=== PATIENT | male | born 1990 | race Caucasian/White ===

== ENCOUNTER 2020-05-14 15:23 | Emergency (ER) | payer BC, SELFPAY ==
--- NOTE | ~2020-05-14 | CT_ITS ---
EXAMINATION: CT brain wo con INDICATION: Right-sided facial weakness COMPARISON: None TECHNIQUE: Standard unenhanced head CT. The dose-length product (DLP) was 681.00 mGy-cm. The mA was a djusted according to patient size. Iterative reconstruction technique was employed. FINDINGS: Motion artifact limits evaluation of the skull base. There is no intracranial hemorrhage, a cute infarction, or abnormal mass lesion. The ventricles are normal. There is no abnormal mass effect or midline shift. The zhu-white matter differentiation is normal. The basal cisterns are patent. Th e orbits are normal. There is mild mucosal thickening of the paranasal sinuses. IMPRESSION: 1. No acute intracranial abnormality. Reviewed, dictated and finalized at location A. ENTERS SUPERVISOR
[2020-05-14 15:27] VITALS: BP 153/100; PULSE 89; RESP 20; TEMP 36.2; O2SAT 100
--- NOTE | 2020-05-14 17:09 | ED.GENADULT ---
HPI - General Adult General Chief complaint: Neuro Symptoms/Deficit Stated complaint: numbness right side of face Time Seen by Provider: 05/14/20 15:37 Source: patient and family Mode of arrival: ambulatory Limitations: no limitations History of Present Illness HPI narrative: Patient is a 30-year-old male who presents with right-sided facial numbness and motor weakness patient notes it started with numbness tingling of the tongue and has progressed to difficulty with smiling and then closing the eye as well as moving the right side of the face to include the forehead and brow patient denies similar occurrence in the past or any injury or trauma Also notes frontal and posterior headache right sided Related Data Home Medications Medication Instructions Recorded Confirmed dextroamphetamine-amphetamine 05/14/20 pantoprazole PO 05/14/20 paroxetine HCl mg PO 05/14/20 Allergies Allergy/AdvReac Type Severity Reaction Status Date / Time shellfish derived Allergy Unknown Swelling Verified 05/14/20 15:39 of Lip/Tongue/Throat Review of Systems Review of Systems: All systems reviewed & are unremarkable except as noted in HPI and below PMFSH Family History Family History (Updated 10/06/15 @ 23:19 by DOCTOR UNKNOWN) Father Family history of diabetes mellitus in first degree relative Social History Social History Smoking status: Never smoker Alcohol intake: current Exam Narrative: Exam Narrative: GENERAL: Well-appearing, well-nourished, and in no acute distress. HEAD: Normocephalic, atraumatic. EYES: PERRLA and EOMI. ENT: Nares clear, no rhinorrhea or epistaxis. Mucous membranes moist. Oropharynx without tonsillar hypertrophy exudate or other lesions. Right TM pearly zhu nonbulging. Left TM slightly erythematous no blistering or other lesions NECK: Supple. No adenopathy or masses. CHEST: Clear to auscultation. No respiratory distress. No wheezes rales or rhonchi HEART: Regular rate and rhythm. No murmur heard. EXTREMITIES: Normal range of motion. No edema. SKIN: Warm, dry, no rash. NEURO: No focal deficits aside from cranial nerves VII deficit right-sided. Alert and oriented x3. Normal speech and gait. Remainder of neurologic exam normal no deficits to include cranial nerves II through XII PSYCH: Normal mood and affect. Course Course Emergency Course: Patient evaluated for his symptoms will be discharged home provided primary care follow-up likely experiencing Valentino's palsy given the right sided facial deficits 3-day duration with no sparing of the forehead on the right side patient otherwise has no other findings concerning for stroke will be discharged with primary care follow-up managed as a Valentino's palsy provided with reasons to return Vital Signs Vital signs: Vital Signs Temperature 97.2 F L 05/14/20 15:27 Pulse Rate 89 05/14/20 15:27 Respiratory Rate 20 05/14/20 15:27 Blood Pressure 153/100 H 05/14/20 15:27 Pulse Oximetry 100 05/14/20 15:27 Temperature 97.2 F L 05/14/20 15:27 Pulse Rate 89 05/14/20 15:27 Respiratory Rate 20 05/14/20 15:27 Blood Pressure 153/100 H 05/14/20 15:27 Pulse Oximetry 100 05/14/20 15:27 Medical Decision Making MDM Narrative Medical decision making narrative: Medical decision making explained in the course likely Valentino's palsy. Patients headache was not sudden or maximal in onset. There are no other focal neurological deficits on exam. Subarachnoid hemorrhage is felt to be unlikey at this time. There is no history of fever, and neck is supple without meningismus, making meningitis unlikely. No traumatic history or signs of trauma on exam. No risk factors for CVA, risk factors reviewed. Patients Valentino's palsy is felt to be a reasonable candidate for outpatient evaluation Vital Signs Vital Signs: Vital Signs Temperature 97.2 F L 05/14/20 15:27 Pulse Rate 89 05/14/20 15
== END 2020-05-14 17:43 | disposition home or self-care (01) ==
PROVIDERS: Emergency Provider Emergency Medicine; PCP Family Medicine Sports Medicine
DX: G51.0 Bell's palsy (principal)
CPT/HCPCS: 70450; 99284

== ENCOUNTER 2023-04-09 19:02 | Emergency (ER) | payer BC, SELFPAY ==
[2023-04-09 19:12] VITALS: BP 105/71; PULSE 71; RESP 18; TEMP 36.7; O2SAT 98
--- NOTE | 2023-04-09 19:38 | ED.URI ---
HPI - URI/Sore Throat General Chief Complaint: Upper Respiratory Infection Stated Complaint: Body Ache/Fever/Fatigue/Shortness of Breath Time Seen by Provider: 04/09/23 19:29 Source: patient and RN notes reviewed Mode of arrival: ambulatory Limitations: no limitations History of Present Illness HPI Narrative: Patient presents today with a 5 day history of fever up to 102, cough, body aches, congestion, fatigue. He has been taking ibuprofen, DayQuil, and NyQuil with some relief. States children are at home with similar symptoms. Related Data Home Medications Medication Instructions Recorded Confirmed dextroamphetamine-amphetamine 10 10 mg PO DAILY 05/14/20 04/09/23 mg tablet pantoprazole 40 mg tablet,delayed 40 mg PO DAILY 05/14/20 04/09/23 release paroxetine HCl 20 mg tablet 20 mg PO DAILY 05/14/20 04/09/23 alprazolam 1 mg tablet 1 mg PO BID 04/09/23 04/09/23 venlafaxine 75 mg capsule,extended 75 mg PO DAILY 04/09/23 04/09/23 release 24 hr Allergies Allergy/AdvReac Type Severity Reaction Status Date / Time shellfish derived Allergy Unknown Swelling Verified 04/09/23 19:26 of Lip/Tongue/Throat Review of Systems Review of Systems: CONSTITUTIONAL: + body aches, fever, fatigue EYES: Denies visual changes, redness, or discharge. ENT: Denies rhinorrhea, sore throat, or otalgia.+ congestion CARDIOVASCULAR: Denies chest pain, palpitations, or edema. RESPIRATORY:+ cough, mild shortness of breath GASTROINTESTINAL: Denies abdominal pain, nausea, vomiting, or diarrhea. GENITOURINARY: Denies dysuria or hematuria. SKIN: Denies rash, itching, or wounds. MUSCULOSKELETAL: Denies back pain, joint pain, or myalgia. NEUROLOGIC: Denies headache, numbness, tingling, or weakness. PSYCH: Denies depression or anxiety. [facility] Family History Family History Father Family history of diabetes mellitus in first degree relative Social History Social History Smoking status: Never smoker Alcohol intake: current Comments At time of signature, I have reviewed and agree with nursing past medical, surgical, social and family history unless otherwise noted. Please see nursing chart for further information. There is no relevant family history pertinent to the presenting complaint Exam Narrative: GENERAL: Mildly ill-appearing, well-nourished, and in no acute distress. HEAD: Normocephalic, atraumatic. EYES: EOMI. No redness or drainage. Conjunctivae normal. ENT: Mucous membranes pink and moist. Nares congested. No rhinorrhea. TMs normal bilaterally. Throat normal. Uvula midline. NECK: Normal AROM. Supple. No lymphadenopathy. CHEST: No respiratory distress. Mild expiratory wheezing throughout HEART: Regular rate and rhythm. No murmur appreciated. EXTREMITIES: Normal range of motion. No edema. SKIN: Warm, dry, no rash. Capillary refill normal. Normal skin turgor. NEURO: No focal deficits. Alert and oriented x3. Gait steady. PSYCH: Normal affect. No signs of depression or anxiety. Course Course Level of Care: Express Care Visit Vital Signs Vital signs: Vital Signs Temperature 98.1 F 04/09/23 19:12 Pulse Rate 04/09/23 19:12 Respiratory Rate 18 04/09/23 19:12 Blood Pressure 105/71 04/09/23 19:12 Pulse Oximetry 98 04/09/23 19:12 Oxygen Delivery Room Air 04/09/23 19:12 Temperature 98.1 F 04/09/23 19:12 Pulse Rate 71 04/09/23 19:12 Respiratory Rate 18 04/09/23 19:12 Blood Pressure 105/71 04/09/23 19:12 Pulse Oximetry 98 04/09/23 19:12 Oxygen Delivery Room Air 04/09/23 19:12 Reviewed MDM - URI/Sore Throat MDM Narrative Medical decision making narrative: Influenza a positive. COVID negative. Patient will be treated with a course of prednisone and an albuterol inhaler for his wheezing. Discussed icct-bdx-gpivmpf medication an
== END 2023-04-09 19:45 | disposition home or self-care (01) ==
PROVIDERS: Emergency Provider Nurse Practitioner; PCP Family Medicine
DX: J10.1 Influenza due to other identified influenza virus with other respiratory manifestations (principal); Z20.822 Contact with and (suspected) exposure to COVID-19; K21.9 Gastro-esophageal reflux disease without esophagitis; F41.9 Anxiety disorder, unspecified; F98.8 Other specified behavioral and emotional disorders with onset usually occurring in childhood and adolescence
CPT/HCPCS: 87426; 87804; 99213; G0463

== ENCOUNTER 2024-07-21 20:12 | Emergency (ER) | payer BC, SELFPAY ==
--- NOTE | ~2024-07-21 | XR_ITS ---
XR chest 1V portable Ordering provider: Sae Abarca MD History: 34 years Male with . chest pain . Comparison: None. FINDINGS: MEDIASTINUM: The cardiac silhouette is not enlarged. LUNGS: No infiltrates, effusions or pneumothorax. OTHER: No free air under the diaphragm. IMPRESSION: No acute cardiopulmonary pathology. Reviewed, dictated and finalized at location A.
[2024-07-21 20:12] VITALS: BP 138/82; PULSE 75; RESP 17; TEMP 36.6; O2SAT 97; O2SAT 98
--- NOTE | 2024-07-21 20:12 | ECG_ITS ---
Test Date: 2024-07-21 20:17:50 Measurements Intervals [place] Rate: 73 P: 3 WA: 156 QRS: 9 QRSD: 94 T: 53 QT: 370 QTc: 410 Interpretive Statements SINUS RHYTHM No previous ECG available for comparison Electronically Signed On 07-22-2024 15:56:36 CDT by Alonzo Ellis M.D.
--- OUTSIDE RECORDS SUMMARY | 2024-07-21 20:14 | XMS_ITS | Clinical Summary ---
Author Organization [facility] Address [address] [place] [address] Care Team Providers Care Shells Inspector Name Role Phone Sarthak Valentino MD Primary Care Provider [phone] Source Comments [facility],non-owned Affiliates and Associated Physician Practices is amultiple site organization consisting of ambulatory clinics and hospital sitesin [place], [place], [place] and [place]. This disclosure is being madepursuant to the Care Everywhere program and may not contain all information available regarding this patient. Last updated 17.[facility] Allergies No known active allergies Medications * Be aware that medications may not be up to date on this document. Alwaysverify current medications with the patient. 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 Gender Identity Not on file Sexual Orientation Not on file Last Filed Vital Signs Vital Sign Reading Time Taken Comments Blood Pressure 138/72 03/05/2019 4:31 PM SPRAY GUN OPERATOR Pulse 120 03/05/2019 4:31 PM SPRAY GUN OPERATOR Temperature 37.2 C (99 F) 03/05/2019 4:31 PM SPRAY GUN OPERATOR Respiratory Rate 16 03/05/2019 4:31 PM SPRAY GUN OPERATOR Oxygen Saturation 99% 03/05/2019 4:31 PM SPRAY GUN OPERATOR Inhaled Oxygen Concentration - - Weight 145.2 kg (320 lb) 03/05/2019 4:31 PM SPRAY GUN OPERATOR Height 182.9 cm (6') 03/05/2019 4:31 PM SPRAY GUN OPERATOR Body Mass Index 43.4 03/05/2019 4:31 PM SPRAY GUN OPERATOR Plan of Treatment Health Maintenance Due Date Last Done Comments HIV SCREENING 2004 HEPATITIS C SCREENING 04/29/2007 DTAP/TDAP/TD VACCINES (1 - Tdap) 2008 HEPATITIS B VACCINE (1 of 3 - 19+ 3-dose series) 2008 COVID-19 VACCINE (1 - 2023-2 5 season) 2023 DEPRESSION SCREENING 03/10/2024 INFLUENZA VACCINE (Season Ended) 2024 ZOSTER VACCINE (1 of 2) 2039 HIB VACCINE Aged Out No longer eligi ble based on patient's age to complete this topic HPV VACCINE Aged Out No longer eligi ble based on patient's age to complete this topic MENINGOCOCCAL (Group B) VACC INE SHARED DECISION-MAKING Aged Out No longer eligibl e based on patient's age to complete this topic MENINGOCOCCAL GROUPS A/C/Y/W VACCINE Aged Out No longer eligible b ased on patient's age to complete this topic PNEUMOCOCCAL VACCINE Aged Out No long er eligible based on patient's age to complete this topic Insurance [facility], [place] [address] [employer] Care Teams Shells Inspector Relationship Specialty Start Date End Date Sarthak Valentino MD [facility] [place] [address] PCP - General Family Medicine 04/08/17
--- OUTSIDE RECORDS SUMMARY | 2024-07-21 20:14 | XMS_ITS | Referral Summary ---
Author Organization [facility] [place] [address] [facility] Address [address] [place] [address] Care Team Providers Care Brand Specialist Name Role Phone Varun Ortiz MD Primary Care Provider [phone] Allergies No known active allergies Medications FLUoxetine (PROzac) 40 mg capsule Take by mouth daily 06/10/[address] (PROTONIX) 20 mg EC tablet Take by mouth Active dextroamphetamin e-amphetamine (ADDERALL) 10 mg tablet Take 10 mg by mouth daily 06/05/2021 Active Active Problems No known active problems Social History Tobacco Use Types Packs/Day Years Used Date Smoking Tobacco: Never Personal Safety Answer Date Recorded Getting School Help Needed Not on file 05/10 Sex and Gender Information Value Date Recorded Sex Assigned at Not on file Legal Sex Male 10:08 AM CDT Gender Identity Not on file Sexual Orientation Not on file Last Filed Vital Signs Vital Sign Reading Time Taken Comments Blood Pressure 114/90 06/17/2021 1:16 PM CDT Pulse 112 06/17/2021 1:16 PM CDT Temperature 36.5 C (97.7 F) 06/17/2021 1:16 PM CDT Respiratory Rate 16 06/17/2021 1:16 PM CDT Oxygen Saturation 98% 06/17/2021 1:16 PM CDT Inhaled Oxygen Concentration - - Weight 143 kg (315 lb 4.8 oz) 06/17/2021 1:16 PM CDT Height 182.9 cm (6') 06/17/2021 1:16 PM CDT Body Mass Index 42.76 06/17/2021 1:16 PM CDT Plan of Treatment Not on file Insurance [employer] [facility] Address: [facility] [id number] [place] [address] Care Teams Brand Specialist Relationship Specialty Start Date End Date Varun Ortiz MD [address] [place] [address] PCP - General Family Medicine 06/17/21
--- OUTSIDE RECORDS SUMMARY | 2024-07-21 20:14 | XMS_ITS | Continuity of Care Document ---
Author Organization [facility] [place] [address] [place] [address] Phone Care Team Providers Care Geological Specialist Name Role Phone Sloan OD, Manjit Unavailable Unavailable Procedures Procedure Date CL Replacement - [facility] Disp W/BW Soft [facility] Eye Exam & Treatment Refraction CL Replacement - [employer] Disp W/BW Soft Sales Tax CL Replacement - [facility] Disp W/BW Soft [facility] CL Replacement - [facility] Disp W/BW Soft [facility] Exam & Treatment CL Replacement - [facility] Disp W/BW Soft [facility] Office/outpatient Visit, [facility] Advance Directives Directive Yes / No Effective Date File Name No Information Encounters Encounter Description Practice Location Reason(s) For Visit Diagnoses Date Provider Providers Copied on Encounter [facility], [address], [place], [place], [id number], [place] tel:[phone] [facility] No Information 3-200 9 Sloan OD Manjit. [address] , [address], [place], [address], [place]. tel:[phone] [facility], [address], [place], [place], [id number], [place] tel:[phone] [facility] No Information Feb-1 1-200 9 Sloan OD Manjit. [address], [place], [place], [facility], [place]. tel:[phone] [facility], [address], [place], [place], [id number], [place] tel:[phone] [facility] No Information May-2 7-200 8 Sloan OD Manjit. [address] , [address], [place], [place], [facility], [place]. tel:[phone] [facility], [address] [place] [address] [address], [place], [place], [id number], [place] tel:[phone] [facility] [place] No Information Rigoberto-0 3-200 8 Sloan OD Manjit. [address], [place], [place], [facility], [place]. tel:[phone] [facility], [id number] [place] [address] [address], [place], [place], [id number], [place] tel:[phone] [facility] [place] No Information Nov-0 2-200 7 Sloan OD Manjit. [facility], [place], [place], [facility], [place]. tel:[phone] [facility], [id number] [place] [address] [address], [place], [place], [id number], [place] tel:[phone] [facility] No Information Sep-1 8-200 7 Sloan OD Manjit. [facility], [place], [place], [facility], [place]. tel:[phone] Office/outpat ient Visit, [facility], [id number] [place] [address] [address], [place], [place], [id number], [place] tel:[phone] [facility] No Information 6-200 7 Sloan OD Manjit. [address] [facility] , [address], [place], [address], [place]. tel:[phone] Family History Family Member Type Diagnosis Age At Onset No Information Payers Payer name Insurance type Covered democrat ID Authoriza tion(s) No Information Social History Type Description Quantity Date Captured Comments Sex Male Smoking Status No Information Chief Complaint And Reason For Visit No Information Reason For Referral Reason For Referral No Information History Of Present Illness Encounter Date Complaint History Of Prese nt Illness No Information Functional Status Date Functional Assessmen t No Information Instructions Date Instruction Additional Infor mation No Information Assessments Type Assessment Date No Information Patient Care Teams Name Effective Dates (start - stop) Status Members No Information
--- OUTSIDE RECORDS SUMMARY | 2024-07-21 20:14 | XMS_ITS | Clinical Summary ---
Author Organization [facility] [place] [address] [facility] Address [address] [facility] [place] [place] [address] Care Team Providers Care Director It Project Name Role Phone Varun Ortiz MD Primary Care Provider [phone] Allergies No known active allergies Medications FLUoxetine (PROzac) 40 mg capsule Take by mouth daily 06/10/[address] (PROTONIX) 20 mg EC tablet Take by mouth Active dextroamphetamin e-amphetamine (ADDERALL) 10 mg tablet Take 10 mg by mouth daily 06/05/2021 Active Active Problems No known active problems Surgical History Surgery Date Site/Laterality Comments HIATAL HERNIA REPAIR Medical History Medical History Date Comments ADHD (attention deficit hyperactivity disorder) Anxiety Depression Social History Tobacco Use Types Packs/Day Years Used Date Smoking Tobacco: Never Personal Safety Answer Date Recorded Getting School Help Needed Not on file 05/10 Sex and Gender Information Value Date Recorded Sex Assigned at Not on file Legal Sex Male 10:08 AM CDT Gender Identity Not on file Sexual Orientation Not on file Obstetrics History Last Filed Vital Signs Vital Sign Reading [...] Plan of Treatment Not on file Insurance [employer] Care Teams Director It Project Relationship Specialty Start Date End Date Varun Ortiz MD [address] [place] [address] PCP - General Family Medicine 06/17/21
--- NOTE | 2024-07-21 20:29 | ED.CHESTPAIN ---
HPI - Chest Pain General Chief Complaint: Chest Pain Stated Complaint: chest pain Time Seen by Provider: 07/21/24 20:28 Source: patient Mode of arrival: ambulatory Limitations: no limitations History of Present Illness HPI narrative: 4-year-old male with a history of anxiety/ depression presents with a two-month history of -- upper chest pain without any radiation. Pain is not brought on by activity. No nausea or vomiting associated with the chest pain. The patient has shortness of breath and lightheadedness with chest pain. -- Shortness of breath. The patient does not have any cough or sputum production. He is a nonsmoker. He has shortness of breath with exercise ox is and at rest. -- He has anxiety and depression and follows up with a counselor. No history of smoking, diabetes mellitus, dyslipidemia or a positive family history. MD complaint: chest pain Onset (ago): month(s) ( Two months) Timing of current episode: episodic Prior episodes: Yes Onset: during rest and during exertion Pain location: substernal Pain radiation: none Severity: moderate Quality: aching and sharp Relieving factors: nothing Exacerbating factors: nothing Treatment prior to arrival: none Risk Factors Coronary artery disease risk factors: none Thoracic aortic dissection risk factors: none Related Data Home Medications Medication Instructions Recorded Confirmed Last Taken Type dextroamphetamine-amphetamine 10 10 mg PO DAILY 05/14/20 04/09/23 Unknown History mg tablet pantoprazole 40 mg tablet,delayed 40 mg PO DAILY 05/14/20 04/09/23 Unknown History release paroxetine HCl 20 mg tablet 20 mg PO DAILY 05/14/20 04/09/23 Unknown History alprazolam 1 mg tablet 1 mg PO BID 04/09/23 07/21/24 Unknown History venlafaxine 75 mg capsule,extended 75 mg PO DAILY 04/09/23 04/09/23 Unknown History release 24 hr lamotrigine 25 mg tablet 25 mg PO DAILY 07/21/24 07/21/24 Unknown History quetiapine 25 mg tablet 25 mg PO DAILY 07/21/24 07/21/24 Unknown History Allergies Allergy/AdvReac Type Severity Reaction Status Date / Time shellfish derived Allergy Unknown Swelling Verified 07/21/24 20:26 of Lip/Tongue/Throat Review of Systems Review of Systems: All systems reviewed & are unremarkable except as noted in HPI and below Constitutional: Constitutional: Reports as per HPI, Reports no additional constitutional complaints and Reports weakness Eyes: Eyes: Reports as per HPI and Reports no additional eye complaints ENT: Reports system reviewed and no additional complaints, except as documented and Reports as per HPI Cardiovascular: Cardiovascular: Reports as per HPI, Reports no additional cardiovascular complaints and Reports chest pain Respiratory: Respiratory: Reports as per HPI, Reports no additional respiratory complaints and Reports dyspnea Gastrointestinal: Gastrointestinal: Reports as per HPI and Reports no additional gastrointestinal complaints Genitourinary: Genitourinary: Reports no additional male genitourinary complaints and Reports as per HPI Musculoskeletal: Musculoskeletal: Reports no additional musculoskeletal complaints and Reports as per HPI Integumentary/Breasts: Skin/Breast: Reports system reviewed and no additional complaints, except as docu and Reports as per HPI Neurologic: Reports system reviewed and no additional complaints, except as documented and Reports as per HPI Psychiatric: Psychiatric: Reports no additional psychiatric complaints, Reports as per HPI and Reports anxiety Endocrine: Endocrine: Reports no additional endocrine complaints and Reports as per HPI Hematologic/Lymphatic: Hematologic/Lymphatic: Reports no additional hematologic/lymphatic complaints and Reports as per HPI Allergic/Immunologic: Allergic/Immunologic: Reports no additional allergic/immunologic complaints and Reports as per HPI [facility] Family History Family History Father Family history of diabetes mellitus in first degree relative Social History Social History Smoking status: Never smoker Alcohol intake: current Exam Narrative: vitals are stable Const: General: healthy appearing Nutritional Appearance: well nourished Orientation/consciousness: patient oriented x3 Limitations: no limitations HENMT: Head: normal to inspection Ears: external ears normal Face/Nose/Sinus: Normal external nose present Face and sinus: normal facial exam Mouth: Yes Normal oral and palatal mucosa present Throat: posterior oropharynx normal Eyes: Conjunctivae: conjunctivae normal Pupils: Equal, round and reactive pupils present EOM: EOMs intact bilaterally Direct Ophthalmoscopy: no photophobia Neck: Neck: normal visual inspection, no lymphadenopathy and no meningeal signs Chest: Chest palpation & inspection: normal inspection of the chest Resp: Effort & Inspection: normal respiratory effort Auscultation: clear to auscultation bilaterally Cardio: Rate: regular rate Rhythm: regular rhythm GI: Auscultation: normal bowel sounds Other: tenderness/rigidity/rebound : General: Yes no CVA tenderness Back/Spine/Pelvis: Back: no CVA tenderness Skin: General skin exam: normal color Rashes: no rashes Wounds: no wounds Neuro: General: patient oriented x3, moves all extremities, no meningeal signs, no focal motor deficits and CN's II-XI intact bilaterally Cranial nerves: Yes Nystagmus not present Speech: normal speech Gait exam (Neuro): Normal gait present Extrem: General: normal to inspection and no clubbing, cyanosis or edema Psych: Mental Status: mental status grossly normal Affect: Anxious affect present Course Course Emergency Course: atypical chest pain-- EKG did not show any acute findings. The patient was noted to have a normal troponin and D-dimer. episodic shortness of breath- chest x-ray does not show any acute findings. episodic weakness- Patient has normal blood counts and TSH Vital Signs Vital signs: Vital Signs Temperature 36.6 C 07/21/24 20:12 Pulse Rate 75 07/21/24 20:12 Respiratory Rate 17 07/21/24 20:12 Blood Pressure 138/82 07/21/24 20:12 Pulse Oximetry 98 07/21/24 20:12 Oxygen Delivery Room Air 07/21/24 20:12 Temperature 36.6 C 07/21/24 20:12 Pulse Rate 75 07/21/24 20:46 Respiratory Rate 17 07/21/24 20:12 Blood Pressure 138/82 07/21/24 20:12 Pulse Oximetry 97 07/21/24 20:12 Oxygen Delivery Room Air 07/21/24 20:12 MDM - Chest Pain MDM Narrative Medical decision making narrative: anxiety atypical chest pain Differential Diagnosis Differential diagnosis: Likely atypical chest pain and costochondritis Medical Records Data Attestation: I reviewed the patient's medical records. Lab Data Attestation: I reviewed the patient's lab results. 07/21/24 21:05 07/21/24 21:05 Labs: Lab Results 07/21/24 Range/Units 21:05 WBC 8.1 (4.8-10.8) K/mm3 RBC 4.98 (4.70-6.10) M/mm3 Hgb 14.8 (14.0-18.0) g/dL Hct 45.8 (40.0-54.0) % MCV 92.0 (78.0-102.0) fL MCH 29.7 (27.0-31.0) pg MCHC 32.3 (32-36) g/dL RDW 11.9 (11.6-14.4) % Plt Count 282 (150-420) K/mm3 MPV 10.2 (8.7-11.0) fl Immature Gran % (Auto) 0.1 H (0.0-0.0) % Neut % (Auto) 55.8 (50.0-70.0) % Lymph % (Auto) 32.9 (18.0-42.0) % [place] % (Auto) 8.2 (2.0-11.0) % Eos % (Auto) 2.6 (1.0-6.0) % Baso % (Auto) 0.4 (0.0-1.0) % Lymph # (Auto) 2.68 (1.10-4.50) K/mm3 [place] # (Auto) 0.67 (0.10-0.90) K/mm3 Eos # (Auto) 0.21 (0.02-0.50) K/mm3 Baso # (Auto) 0.03 (0.00-0.10) K/mm3 Abs Immat Gran (auto) 0.01 H (0.00-0.00) K/mm3 Absolute Neuts (auto) 4.54 (1.70-7.20) K/mm3 Absolute Nucleated RBC 0.00 (0.00-0.00) K/mm3 Nucleated RBC % 0.0 (0-0.0) % D-Dimer 0.19 (0.19-0.50) mg/L Sodium 141 (137-145) mmol/L Potassium 4.4 (3.4-5.0) mmol/L Chloride 108 H (98-107) mmol/L Carbon Dioxide 29 (22-30) mmol/L Anion Gap 4 (4-12) mmol/L BUN 12 (9-20) mg/dL Creatinine 0.92 (0.7-1.3) mg/dL Estim Creat Clear Calc 146 ml/min Estimated GFR > 60 (59 - ) Glucose 75 (65-110) mg/dL Calculated Osmolality 290 (285-295) mOsm/kg Lactic Acid 0.9 (0.4-2.0) mmol/L Calcium 9.3 (8.4-10.2) mg/dL Total Bilirubin 0.5 (0.2-1.3) mg/dL AST 35 (17-59) U/L ALT 34 (6-50) U/L Alkaline Phosphatase 46 (38-126) U/L Total Creatine Kinase 128 (55-170) U/L Troponin I < 0.012 (0.000-0.034) ng/mL Total Protein 7.4 (6.3-8.2) g/dL Albumin 4.4 (3.5-5.1) g/dL Lipase 124 (23-300) U/L TSH 3.230 (0.465-4.680) uIU/mL ECG Data EKG #1: ECG completion date: 07/21/24 ECG completion time: 20:17 Interpretation: normal sinus rhythm. Normal axis. No ST-T wave changes noted. Discharge Plan Discharge Clinical Impression: Atypical chest pain, Anxiety and depression Patient Disposition: Home Condition: Stable Instructions: Antibiotic Form, Anxiety (ED), Chest Wall Pain (ED) Patient Language: [place] Prescriptions: No Action quetiapine 25 mg tablet 25 mg PO DAILY lamotrigine 25 mg tablet 25 mg PO DAILY venlafaxine 75 mg capsule,extended release 24hr 75 mg PO DAILY alprazolam 1 mg tablet 1 mg PO BID prednisone 50 mg tablet 50 mg PO DAILY 5 Days Qty: 5 0RF albuterol sulfate [ProAir HFA] 90 mcg/actuation HFA aerosol inhaler 2 puff INHALATION Q4-6H PRN (Reason: shortness of breath or wheezing) Qty: 18 0RF (DME) BreatheRite MDI Spacer Spacer See Rx Instructions .ROUTE .MEDSUPPLY Qty: 1 0RF Rx Instructions: As directed dextroamphetamine-amphetamine 10 mg tablet 10 mg PO DAILY paroxetine HCl 20 mg tablet 20 mg PO DAILY pantoprazole 40 mg tablet,delayed release (DR/EC) 40 mg PO DAILY Follow-up/Referrals: Chelsy,Sarthak Alston MD [Primary Care Provider] - Time of Disposition: 21:59
[2024-07-21 20:46] VITALS: BP 133/82; PULSE 75; PULSE 78; RESP 17; O2SAT 96
--- OUTSIDE RECORDS SUMMARY | 2024-07-21 20:56 | XMS_ITS | Referral Summary ---
Author Organization [facility] [place] [address] [facility] Address [address] [facility] [address] Care Team Providers Care Rn Interventional Name Role Phone Varun Ortiz MD Primary Care Provider [phone] Allergies No known active allergies Medications FLUoxetine [...] Plan of Treatment Not on file Insurance [employer] OOS Care Teams Rn Interventional Relationship Specialty Start Date End Date Varun Ortiz MD [address] [place] [address] PCP - General Family Medicine 06/17/21
--- OUTSIDE RECORDS SUMMARY | 2024-07-21 20:56 | XMS_ITS | Clinical Summary ---
Author Organization [facility] [place] [address] [facility] Address [address] [place] [address] Care Team Providers Care Roller Embosser Name Role Phone Varun Ortiz MD Primary Care Provider [phone] Allergies No known active allergies Medications FLUoxetine [...] Plan of Treatment Not on file Insurance [place] OOS Care Teams Roller Embosser Relationship Specialty Start Date End Date Varun Ortiz MD [address] [place] [address] PCP - General Family Medicine 06/17/21
--- OUTSIDE RECORDS SUMMARY | 2024-07-21 20:56 | XMS_ITS | Continuity of Care Document ---
Author Organization [facility] Address [address] [place] [address] Phone Care Team Providers Care Foster Care Worker Name Role Phone Sloan OD, Manjit Unavailable Unavailable Procedures Procedure Date CL Replacement - [employer] Disp W/BW [place] Secure Medical Eye Exam & Treatment Refraction CL Replacement - [employer] Disp W/BW Soft [employer] Tax CL Replacement - [employer] Disp W/BW [place] [facility] Medical CL Replacement - [employer] Disp W/BW [place] [facility] Eye Exam & Treatment CL Replacement - [employer] Disp W/BW [place] [facility] Medical Office/outpatient Visit, [facility] Advance Directives Directive Yes / No Effective Date File Name No Information Encounters Encounter Description Practice Location Reason(s) For Visit Diagnoses Date Provider Providers Copied on Encounter [facility], [address], [place], [place], [id number], [place] tel:[phone] [facility] No Information 3-200 9 Sloan OD Manjit. [address], [place], [address], [place]. tel:[phone] [facility], [address], [place], [place], [id number], [place] tel:[phone] [facility] No Information Feb-1 1-200 9 Sloan OD Manjit. [address], [place], [place], [facility], [place]. tel:[phone] [facility], [address], [place], [place], [id number], [place] tel:[phone] [facility] No Information May-2 7-200 8 Sloan OD Manjit. [address] , [address], [place], [facility], [place]. tel:[phone] [facility], [address] [place] [address] [address], [place], [place], [address], [place] tel:[phone] [facility] No Information Rigoberto-0 3-200 8 Sloan OD Manjit. [address] , [address], [place], [facility], [place]. tel:[phone] [facility], [address] [place] [address] [address], [place], [place], [id number], [place] tel:[phone] [facility] [place] No Information Nov-0 2-200 7 Sloan OD Manjit. [facility], [place], [facility], [place]. tel:[phone] [facility], [address] [place] [address] [address], [place], [place], [id number], [place] tel:[phone] [facility] No Information Sep-1 8-200 7 Sloan OD Manjit. [facility], [place], [facility], [place]. tel:[phone] Office/outpat ient Visit, [facility], [address] [place] [address] [address], [place], [place], [address], [place] tel:[phone] [facility] No Information 6-200 7 Sloan OD Manjit. [address] , [address], [place], [address], [place]. tel:[phone] Family History Family Member Type Diagnosis Age [...]
--- OUTSIDE RECORDS SUMMARY | 2024-07-21 20:56 | XMS_ITS | Clinical Summary ---
Author Organization [facility] Address [address] [place] [address] Care Team Providers Care Talent Specialist Name Role Phone Sarthak Valentino MD Primary Care Provider [phone] Source Comments [facility],non-owned Affiliates and Associated Physician Practices is amultiple site organization consisting of ambulatory clinics and hospital sitesin [place], [place], [place] and [place]. This disclosure is being madepursuant to the Care Everywhere program and may not contain all information available regarding this patient. Last updated 17.[facility] Allergies No known active allergies Medications * [...] on file Legal Sex Male 2:58 PM RUBY ENGINEER Gender Identity Not on file Sexual Orientation Not on file Last Filed Vital Signs Vital Sign Reading Time Taken Comments Blood Pressure 138/72 03/05/2019 4:31 PM RUBY ENGINEER Pulse 120 03/05/2019 4:31 PM RUBY ENGINEER Temperature 37.2 C (99 F) 03/05/2019 4:31 PM RUBY ENGINEER Respiratory Rate 16 03/05/2019 4:31 PM RUBY ENGINEER Oxygen Saturation 99% 03/05/2019 4:31 PM RUBY ENGINEER Inhaled Oxygen Concentration - - Weight 145.2 kg (320 lb) 03/05/2019 4:31 PM RUBY ENGINEER Height 182.9 cm (6') 03/05/2019 4:31 PM RUBY ENGINEER Body Mass Index 43.4 03/05/2019 4:31 PM RUBY ENGINEER Plan of Treatment Health Maintenance Due Date [...] patient's age to complete this topic Insurance [facility] [address] [employer] Care Teams Talent Specialist Relationship Specialty Start Date End Date Sarthak Valentino MD [facility] [place] [address] PCP - General Family Medicine 04/08/17
[2024-07-21 21:01] VITALS: BP 136/89; PULSE 77; RESP 19; O2SAT 98
[2024-07-21 21:09] LABS: Basophils Absolute Auto 0.03 K/mm3 (0.00-0.10); Basophils Percent Auto 0.4 % (0.0-1.0); Eosinophils Absolute Auto 0.21 K/mm3 (0.02-0.50); Eosinophils Percent Auto 2.6 % (1.0-6.0); Hematocrit 45.8 % (40.0-54.0); Hemoglobin 14.8 g/dL (14.0-18.0); Immature Granulocyte Absolute 0.01 K/mm3 (0.00-0.00); Immature Granulocyte Percent A 0.1 % (0.0-0.0); Lymphocytes Absolute Auto 2.68 K/mm3 (1.10-4.50); Lymphocytes Percent Auto 32.9 % (18.0-42.0); Mean Corpuscular HGB Conc 32.3 g/dL (32-36); Mean Corpuscular Hemoglobin 29.7 pg (27.0-31.0); Mean Platelet Volume 10.2 fl (8.7-11.0); Monocytes Absolute Auto 0.67 K/mm3 (0.10-0.90); Monocytes Percent Auto 8.2 % (2.0-11.0); Neutrophils Absolute Auto 4.54 K/mm3 (1.70-7.20); Neutrophils Percent Auto 55.8 % (50.0-70.0); Platelet Count Result 282 K/mm3 (150-420); Red Blood Count 4.98 M/mm3 (4.70-6.10); Red Cell Distribution Width 11.9 % (11.6-14.4); White Blood Count 8.1 K/mm3 (4.8-10.8)
[2024-07-21 21:16] VITALS: BP 115/76; PULSE 83; RESP 20; O2SAT 96
[2024-07-21 21:21] LABS: D Dimer 0.19 mg/L (0.19-0.50)
[2024-07-21 21:23] LABS: Alanine Aminotransferase 34 U/L (6-50); Albumin Level 4.4 g/dL (3.5-5.1); Alkaline Phosphatase 46 U/L (38-126); Anion Gap 4 mmol/L (4-12); Aspartate Amino Transferase 35 U/L (17-59); Bilirubin,Total 0.5 mg/dL (0.2-1.3); Blood Urea Nitrogen 12 mg/dL (9-20); Calcium 9.3 mg/dL (8.4-10.2); Carbon Dioxide 29 mmol/L (22-30); Chloride 108 mmol/L (98-107); Creatine Kinase 128 U/L (55-170); Estimated CRCL calculation 146 ml/min; Estimated Glomerular Filt Rate > 60; Glucose 75 mg/dL (65-110); Lipase 124 U/L (23-300); Osmolality Calculated 290 mOsm/kg (285-295); Potassium 4.4 mmol/L (3.4-5.0); Sodium 141 mmol/L (137-145); Total Protein 7.4 g/dL (6.3-8.2)
[2024-07-21 21:24] LABS: Lactic Acid Reflex 0.9 mmol/L (0.4-2.0)
[2024-07-21 21:31] VITALS: BP 128/87; PULSE 80; RESP 16; O2SAT 97
[2024-07-21 21:35] LABS: Troponin I < 0.012 ng/mL (0.000-0.034)
[2024-07-21 22:01] VITALS: BP 116/87; PULSE 76; RESP 17; O2SAT 98
== END 2024-07-21 22:23 | disposition home or self-care (01) ==
PROVIDERS: Emergency Provider Internal Medicine Critical Care Medicine; PCP Family Medicine
DX: R07.89 Other chest pain (principal); F41.9 Anxiety disorder, unspecified; F32.A Depression, unspecified; Z79.899 Other long term (current) drug therapy
CPT/HCPCS: 36415; 71045; 80053; 82550; 83605; 83690; 84443; 84484; 85025; 85380; 93005; 99284

== ENCOUNTER 2024-08-24 13:36 | Emergency (ER) | payer BC, SELFPAY ==
--- NOTE | ~2024-08-24 | CT_ITS ---
CLINICAL INDICATION: Intermittent abdominal pain and nausea COMPARISON: None. TECHNIQUE: Multiple contiguous axial images of the abdomen and pelvis were performed following the ad ministration of with 100 mL Omnipaque-350 intravenous contrast The dose-length product (DLP) was 1590.99 mGy-cm. Automated exposure control and iterative reconstruction technique were employed. FINDINGS/OBSERVATIONS: Visualized lower thorax: The bilateral lung bases are clear. The heart is of normal size, without pericardial effusion. No hiatal hernia is present. Liver: The liver demonstrates homogeneous enhancement and is enlarged measuring 20 cm in longitudinal dimens ion. Gallbladder and biliary system: The gallbladder is only minimally distended, and contains two lamellated stones. No pericholecystic f luid is noted. Pancreas: The pancreas enhances homogeneously without ductal dilatation. Spleen: The spleen enhances homogeneously and is not enlarged. Kidneys: The bilateral kidneys enhance symmetrically without hydronephrosis or renal calculi. Adrenal glands: Unremarkable. Gastrointestinal tract: Edematous mural thickening is identified originating in the terminal ileum and extending into the col on. The morocho of the colon normalize at the level of the sigmoid colon. Appendix: The air-filled appendix is of normal caliber (axial series, images 116 through 141) Vasculature: Unremarkable. Lymph nodes: No pathologically enlarged or morphologically suspicious lymph nodes within the retroperitoneum or at the root of the mesentery. Pelvic structures: The bladder is only minimally distended, and otherwise unremarkable. The prostate gland is not enlarged. Body wall and musculoskeletal: Small fat-containing umbilical hernia. No significant degenerative disease within the lower thoracic or lumbosacral spine. IMPRESSION: Edematous mural thickening within the distal small bowel/proximal to mid colon, as detailed above. The distribution and appearance are worrisome for inflammatory bowel disease for which clinical corre lation is needed. Reviewed, dictated and finalized at location A. IMPRESSION: Edematous mural thickening within the distal small bowel/proximal to mid colon, as detailed above. The distribution and appearance are worrisome for inflammatory bowel disease fo r which clinical correlation is needed.
[2024-08-24 13:37] VITALS: BP 133/96; PULSE 86; RESP 17; TEMP 36.8; O2SAT 97
--- NOTE | 2024-08-24 13:58 | ED_ITS ---
HPI - General Adult General Chief complaint: Abdominal Pain Stated complaint: abdominal pain Time Seen by Provider: 08/24/24 13:58 Source: patient Mode of arrival: ambulatory Limitations: no limitations History of Present Illness HPI narrative: 34-year-old white male complains of diarrhea and abdominal pain intermittently. He says he has a history of hiatal hernia is on omeprazole for this. He has had this pain diarrhea on and off for over year and half not seen a specialist for this is not discussed this with his primary care provider. No also complains of her rash on his hands and feet his buttocks is been there for over a year. At times in on his hands he has had some small itchy blisters clear blisters. He works with the gloves. He was given steroid cream for his hands. He has not used this for several months. His rash on his but is just above his rectum in between his cheeks. Dry irritated area between the upper buttocks increase. Otherwise he is eating and drinking and voiding fine without any a swelling he says he a little lightheaded today feels thirsty. He is walking talking seeing and hearing without any weakness numbness or paresthesias. Denies any other rash or any other symptoms. Related Data Home Medications ?Medication ?Instructions ?Recorded ?Confirmed ?Last Taken ?Type dextroamphetamine-amphetamine 10 10 mg PO DAILY 05/14/20 04/09/23 Unknown History mg tablet pantoprazole 40 mg tablet,delayed 40 mg PO DAILY 05/14/20 04/09/23 Unknown History release alprazolam 1 mg tablet 1 mg PO BID 04/09/23 07/21/24 Unknown History lamotrigine 25 mg tablet 25 mg PO DAILY 07/21/24 07/21/24 Unknown History quetiapine 25 mg tablet 25 mg PO DAILY 07/21/24 07/21/24 Unknown History Allergies Allergy/AdvReac Type Severity Reaction Status Date / Time shellfish derived Allergy Unknown Swelling Verified 08/24/24 13:44 of Lip/Tongue/Throat Review of Systems 2 Review of Systems: All systems reviewed & are unremarkable except as noted in HPI and below PMFSH Family History Family History Father Family history of diabetes mellitus in first degree relative Social History Social History Smoking status: Never smoker Alcohol intake: current Exam 2 Narrative: ?White male patient with no apparent distress.? Head normocephalic, atraumatic.? Eyes conjunctiva pink sclera nonicteric.? Extraocular movements are intact.? Ears externally normal.? Oropharynx is clear with moist mucous membranes without exudates.? Neck is supple nontender no lymphadenopathy.? Back is nontender.? Lungs are clear.? Heart is regular rate and rhythm without murmurs gallops or rubs.? Chest wall nontender. Abdomen is soft and nontender no hepatosplenomegaly or masses no CVA tenderness no abdominal bruits.? Extremities no cyanosis clubbing or edema.? Skin is warm and dry . Hands has dermatitis palm of his hand dried scaly. At of see any blisters on his hands. His right great toe in 2nd toe as small blisters and dried scabs and flaking. His left foot great toe is dry and flaky. Neurological patient is alert and oriented x 4. Motor and sensory grossly intact.? Gait is normal. Course Vital Signs Vital signs: Vital Signs Temperature 36.8 C 08/24/24 13:37 Pulse Rate 86 08/24/24 13:37 Respiratory Rate 17 08/24/24 13:37 Blood Pressure 133/96 H 08/24/24 13:37 Pulse Oximetry 97 08/24/24 13:37 Oxygen Delivery Room Air 08/24/24 13:37 Temperature 36.4 C 08/24/24 16:23 Pulse Rate 70 08/24/24 16:23 Respiratory Rate 18 08/24/24 16:23 Blood Pressure 125/79 08/24/24 16:23 Pulse Oximetry 98 08/24/24 16:23 Oxygen Delivery Room Air 08/24/24 16:23 Medical Decision Making MDM Narrative Medical decision making narrative: Patient was placed in Room # History and physical was performed. CT abdomen pelvis with IV contrast showed edematous mural thickening within the distal small bowel /proximal to mid colon, the distribution appearance are worrisome for inflammatory bowel disease for which clinical correlation is needed. Independent Historian: External Source Review: Differential Dx includes but not limited to: Medications were Reviewed: Independently Interpreted by me: Meds, treatment, ED course: Normal saline 1 L Protonix 40 mg Zofran 4 mg IV given Social Situation Impacting Patients Care: patient says is difficult to get into the doctor in discussed all his problems that he has. Shared decision Making: Evaluation was discussed all questions were asked and answered patient agreed with the plan. DISCHARGE DIAGNOSIS: Dyshidrotic eczema of hands and feet, dermatitis/ eczema of the buttocks, chronic diarrhea abdominal pain Probable inflammatory bowel disease DISPOSITION: discharge home CONDITION AT DISCHARGE: stable Vital Signs Vital Signs: Vital Signs Temperature 36.8 C 08/24/24 13:37 Pulse Rate 86 08/24/24 13:37 Respiratory Rate 17 08/24/24 13:37 Blood Pressure 133/96 H 08/24/24 13:37 Pulse Oximetry 97 08/24/24 13:37 Oxygen Delivery Room Air 08/24/24 13:37 Temperature 36.4 C 08/24/24 16:23 Pulse Rate 70 08/24/24 16:23 Respiratory Rate 18 08/24/24 16:23 Blood Pressure 125/79 08/24/24 16:23 Pulse Oximetry 98 08/24/24 16:23 Oxygen Delivery Room Air 08/24/24 16:23 Lab Data 08/24/24 14:26 08/24/24 14:26 Labs: Lab Results 08/24/24 08/24/24 Range/Units 14:26 14:31 WBC 6.7 (4.8-10.8) K/mm3 RBC 5.02 (4.70-6.10) M/mm3 Hgb 15.3 (14.0-18.0) g/dL Hct 46.5 (40.0-54.0) % MCV 92.6 (78.0-102.0) fL MCH 30.5 (27.0-31.0) pg MCHC 32.9 (32-36) g/dL RDW 12.0 (11.6-14.4) % Plt Count 259 (150-420) K/mm3 MPV 10.2 (8.7-11.0) fl ESR 4 (0-15) mm/hr Sodium 139 (137-145) mmol/L Potassium 4.0 (3.4-5.0) mmol/L Chloride 106 (98-107) mmol/L Carbon Dioxide 29 (22-30) mmol/L Anion Gap 4 (4-12) mmol/L BUN 10 (9-20) mg/dL Creatinine 0.73 (0.7-1.3) mg/dL Estim Creat Clear Calc 181 ml/min Estimated GFR > 60 (59 - ) Glucose 96 (65-110) mg/dL Calculated Osmolality 287 (285-295) mOsm/kg Calcium 9.0 (8.4-10.2) mg/dL Magnesium 1.8 (1.6-2.3) mg/dL Total Bilirubin 0.7 (0.2-1.3) mg/dL AST 34 (17-59) U/L ALT 31 (6-50) U/L Alkaline Phosphatase 47 (38-126) U/L Total Protein 7.4 (6.3-8.2) g/dL Albumin 4.3 (3.5-5.1) g/dL Lipase 111 (23-300) U/L Urine Color Light yellow (Yellow) Urine Appearance Clear (Clear) Urine pH 7.0 (5.0-8.0) Ur Specific [facility] 1.010 (1.010-1.020) Urine Protein Negative (Negative) Urine Glucose (UA) Negative (Negative) Urine Ketones Negative (Negative) Ur Blood (Man) Negative (Negative) Urine Nitrate Negative (Negative) Urine Bilirubin Negative (Negative) Urine Urobilinogen 0.2 (0.2-1.0) mg/dL Leukocyte Esterase Rfl Negative (Negative) CAMILO/UL Discharge Plan Discharge Clinical Impression: Chronic diarrhea, Abdominal pain, chronic, epigastric, Eczema, dyshidrotic Patient Disposition: Home Condition: Stable Instructions: Antibiotic Form Additional Instructions: follow-up with gastroenterology [phone] Pradeep Neri, or Eddie Gee [address] [place] [address], [address] [place] [address] for possible inflammatory bowel disease. Discussed further evaluation and treatment. Use [id number] 1% hydrocortisone on your rash on the buttocks daily. And use fluocinonide 0.05% cream ONLY ON HANDS AND FEET RASH. PROTONIX twice a day instead of once a day. And you can take Zofran 4 mg oral dissolvable tablet every 4 hours as needed for nausea vomiting. Take Tylenol as needed for pain. Patient Language: Croatian Prescriptions: New fluocinonide 0.05 % cream 1 applic topical BID Qty: 60 0RF Rx Instructions: Apply to hands and feet only. ondansetron 4 mg tablet,disintegrating 4 mg PO Q4H PRN (Reason: nausea and vomiting) Qty: 20 0RF Rx Instructions: give 1st dose 30min before emetogenic chemo No Action quetiapine 25 mg tablet 25 mg PO DAILY lamotrigine 25 mg tablet 25 mg PO DAILY alprazolam 1 mg tablet 1 mg PO BID (DME) BreatheRite MDI Spacer Spacer See Rx Instructions .ROUTE .MEDSUPPLY Qty: 1 0RF Rx Instructions: As directed dextroamphetamine-amphetamine 10 mg tablet 10 mg PO DAILY pantoprazole 40 mg tablet,delayed release (DR/EC) 40 mg PO DAILY Follow-up/Referrals: Jean Claude Zhang MD [Physician] - Time of Disposition: 16:13
--- OUTSIDE RECORDS SUMMARY | 2024-08-24 14:15 | XMS_ITS | Clinical Summary ---
Author Organization [facility] Address [address] [place] [address] Care Team Providers Care Hall Director Name Role Phone Sarthak Valentino MD Primary Care Provider Source Comments [facility],non-owned Affiliates and Associated Physician Practices is amultiple site organization consisting of ambulatory clinics and hospital sitesin [place], [place], [place] and [place]. This disclosure is being madepursuant to the Care Everywhere program and may not contain all information available regarding this patient. 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 Gender Identity Not on file Sexual Orientation Not on file Last Filed Vital Signs Vital Sign Reading Time Taken Comments Blood Pressure 138/72 03/05/2019 4:31 PM DIE TRY OUT WORKER STAMPING Pulse 120 03/05/2019 4:31 PM DIE TRY OUT WORKER STAMPING Temperature 37.2 C (99 F) 03/05/2019 4:31 PM DIE TRY OUT WORKER STAMPING Respiratory Rate 16 03/05/2019 4:31 PM DIE TRY OUT WORKER STAMPING Oxygen Saturation 99% 03/05/2019 4:31 PM DIE TRY OUT WORKER STAMPING Inhaled Oxygen Concentration - - Weight 145.2 kg (320 lb) 03/05/2019 4:31 PM DIE TRY OUT WORKER STAMPING Height 182.9 cm (6') 03/05/2019 4:31 PM DIE TRY OUT WORKER STAMPING Body Mass Index 43.4 03/05/2019 4:31 PM DIE TRY OUT WORKER STAMPING Plan of Treatment Health Maintenance Due Date [...] patient's age to complete this topic [place] [address] PA[employer] GENER[employer] ANTHEM Care Teams Hall Director Relationship Specialty Start Date End Date Sarthak Valentino MD [facility] [place] [address] PCP - General Family Medicine 04/08/17
--- OUTSIDE RECORDS SUMMARY | 2024-08-24 14:15 | XMS_ITS | Continuity of Care Document ---
Author Organization [facility] Eye [facility] Address [address] [place] [address] Phone Care Team Providers Care Data Conversion Operator Name Role Phone Sloan OD, Manjit Unavailable Unavailable Procedures Procedure Date CL Replacement - Vistakon Disp W/BW Soft Feedjit Medical Eye Exam & Treatment Refraction CL Replacement - Vistakon Disp W/BW Soft Sales Tax CL Replacement - Vistakon Disp W/BW Soft Feedjit Medical CL Replacement - Vistakon Disp W/BW Soft Feedjit Medical Eye Exam & Treatment CL Replacement - Vistakon Disp W/BW Soft Feedjit Medical Office/outpatient Visit, [facility] Advance Directives Directive Yes / No Effective Date File Name No Information Encounters Encounter Description Practice Location Reason(s) For Visit Diagnoses Date Provider Providers Copied on Encounter [facility], [address], [place], [place], [id number], [place] tel:[phone] [facility] No Information 3-200 9 Sloan OD Manjit. [address] , [address], [place], [address], [place]. tel:[phone] [facility], [address], [place], [place], [address], [place] tel:[phone] [facility] No Information Feb-1 1-200 9 Sloan OD Manjit. [address], [place], [place], [facility], [place]. tel:[phone] [facility], [address], [place], [place], [address], [place] tel:[phone] [facility] No Information May-2 7-200 8 Sloan OD Manjit. [address] , [address], [place], [place], [facility], [place]. tel:[phone] [facility], [address] [place] [address] [address], [place], [place], [address], [place] tel:[phone] [facility] No Information Rigoberto-0 3-200 8 Sloan OD Manjit. [address] , [address], [place], [facility], [place]. tel:[phone] [facility], [address] [place] [address] [address], [place], [place], [address], [place] tel:[phone] [facility] No Information Nov-0 2-200 7 Sloan OD Manjit. [facility], [place], [facility], [place]. tel:[phone] [facility], [address] [place] [address] [address], [place], [place], [address], [place] tel:[phone] [facility] No Information Sep-1 8-200 7 Sloan OD Manjit. [facility] , [address], [place], [facility], [place]. tel:[phone] Office/outpat ient Visit, [facility], [address] [place] [address] [address], [place], [place], [address], [place] tel:[phone] [facility] No Information 6-200 7 Sloan OD Manjit. [address] [facility] , [address], [place], [address], [place]. tel:[phone] Family History Family Member Type Diagnosis Age [...]
[2024-08-24 14:36] LABS: Hematocrit 46.5 % (40.0-54.0); Hemoglobin 15.3 g/dL (14.0-18.0); Mean Corpuscular HGB Conc 32.9 g/dL (32-36); Mean Corpuscular Hemoglobin 30.5 pg (27.0-31.0); Mean Corpuscular Volume 92.6 fL (78.0-102.0); Mean Platelet Volume 10.2 fl (8.7-11.0); Platelet Count Result 259 K/mm3 (150-420); Red Blood Count 5.02 M/mm3 (4.70-6.10); White Blood Count 6.7 K/mm3 (4.8-10.8)
[2024-08-24 14:38] LABS: Add Urine Microscopic? NO; Appearance Urine Clear (Clear); Bilirubin Urine Negative (Negative); Blood Urine Negative (Negative); Color Urine Light Yellow (Yellow); Glucose Urine UA Negative (Negative); Ketones Urine Negative (Negative); Leukocyte Esterase Ur Negative LEU/UL (Negative); Nitrate Urine Negative (Negative); Protein Urine Negative (Negative); Urobilinogen Urine 0.2 mg/dL (0.2-1.0)
[2024-08-24] MEDS: SODIUM CHLORIDE 0.9% IV 1,000 ML 999 ML IV CONT (14:40)
[2024-08-24] MEDS: ONDANSETRON INJ 4 MG/2 ML VIAL IV PUSH (14:41)
[2024-08-24] MEDS: PANTOPRAZOLE SODIUM IV 40 MG VIAL IV PUSH (14:41)
[2024-08-24 14:52] LABS: Alanine Aminotransferase 31 U/L (6-50); Albumin Level 4.3 g/dL (3.5-5.1); Alkaline Phosphatase 47 U/L (38-126); Anion Gap 4 mmol/L (4-12); Aspartate Amino Transferase 34 U/L (17-59); Bilirubin,Total 0.7 mg/dL (0.2-1.3); Blood Urea Nitrogen 10 mg/dL (9-20); Carbon Dioxide 29 mmol/L (22-30); Chloride 106 mmol/L (98-107); Estimated CRCL calculation 181 ml/min; Estimated Glomerular Filt Rate > 60; Glucose 96 mg/dL (65-110); Lipase 111 U/L (23-300); Magnesium 1.8 mg/dL (1.6-2.3); Osmolality Calculated 287 mOsm/kg (285-295); Sodium 139 mmol/L (137-145); Total Protein 7.4 g/dL (6.3-8.2)
[2024-08-24 15:41] LABS: Erythrocyte Sedimentation Rate 4 mm/hr (0-15)
--- OUTSIDE RECORDS SUMMARY | 2024-08-24 15:55 | XMS_ITS | Clinical Summary ---
Author Organization [facility] [address] [facility] Address [address] [facility] [place] [address] Care Team Providers Care Clerical Assistant Name Role Phone Varun Ortiz MD Primary Care Provider [phone] Allergies No known active allergies Medications FLUoxetine [...] Plan of Treatment Not on file Insurance [employer] OOS Care Teams Clerical Assistant Relationship Specialty Start Date End Date Varun Ortiz MD [address] [place] [address] PCP - General Family Medicine 06/17/21
--- OUTSIDE RECORDS SUMMARY | 2024-08-24 15:55 | XMS_ITS | Continuity of Care Document ---
Author Organization [facility] Eye [facility] Address [address] [place] [address] Phone Care Team Providers Care Lace Weaver Name Role Phone Sloan OD, Manjit Unavailable Unavailable Procedures Procedure Date CL Replacement - Vistakon Disp W/BW Soft RingCredible Medical Eye Exam & Treatment Refraction CL Replacement - Vistakon Disp W/BW Soft Sales Tax CL Replacement - Vistakon Disp W/BW Soft RingCredible Medical CL Replacement - Vistakon Disp W/BW Soft RingCredible Medical Eye Exam & Treatment CL Replacement - Vistakon Disp W/BW Soft RingCredible Medical Office/outpatient Visit, [facility] Advance Directives Directive Yes / No Effective Date File Name No Information Encounters Encounter Description Practice Location Reason(s) For Visit Diagnoses Date Provider Providers Copied on Encounter [facility], [address], [place], [place], [id number], [place] tel:[phone] SEC [facility] No Information 3-200 9 Sloan OD Manjit. [address] , [address], [place], [address], [place]. tel:[phone] [facility], [address], [place], [place], [address], [place] tel:[phone] [facility] No Information Feb-1 1-200 9 Sloan OD Manjit. [address], [place], [place], [facility], [place]. tel:[phone] [facility] Eye [facility], [address], [place], [place], [address], [place] tel:[phone] [facility] No Information May-2 7-200 8 Sloan OD Manjit. [address], [place], [place], [facility], [place]. tel:[phone] [facility], [address] [place] [address] [address], [place], [place], [address], [place] tel:[phone] [facility] No Information Rigoberto-0 3-200 8 Sloan OD Manjit. [address], [place], [facility], [place]. tel:[phone] [facility], [address] [place] [address] [address], [place], [place], [address], [place] tel:[phone] [facility] No Information Nov-0 2-200 7 Sloan OD Manjit. [facility], [place], [place], [facility], [place]. tel:[phone] [facility], [address] [place] [address] [address], [place], [place], [address], [place] tel:[phone] [facility] No Information Sep-1 8-200 7 Sloan OD Manjit. [facility] , [address], [place], [place], [facility], [place]. tel:[phone] Office/outpat ient Visit, [facility], [address] [place] [address] [address], [place], [place], [address], [place] tel:[phone] [facility] No Information 6-200 7 Sloan OD Manjit. [address] [facility] , [address], [place], [address], [place]. tel:[phone] Family History Family Member Type Diagnosis Age At Onset No Information Payers Payer name Insurance type Covered alliance party ID Authoriza tion(s) No Information Social History [...]
--- OUTSIDE RECORDS SUMMARY | 2024-08-24 15:55 | XMS_ITS | Referral Summary ---
Author Organization [facility] [address] [facility] Address [address] [facility] [place] [address] Care Team Providers Care Paper Novelty Maker Name Role Phone Varun Ortiz MD Primary Care Provider [phone] Allergies No known active allergies Medications FLUoxetine [...] Plan of Treatment Not on file Insurance [employer] OOS Care Teams Paper Novelty Maker Relationship Specialty Start Date End Date Varun Ortiz MD [address] [place] [address] PCP - General Family Medicine 06/17/21
--- OUTSIDE RECORDS SUMMARY | 2024-08-24 15:55 | XMS_ITS | Clinical Summary ---
Author Organization [facility] Address [address] [place] [address] Care Team Providers Care Flat Sorter Processor Name Role Phone Sarthak Valentino MD Primary Care Provider [phone] Source Comments [facility],non-owned Affiliates and Associated Physician Practices is amultiple site organization consisting of ambulatory clinics and hospital sitesin [place], [place], [place] and [place]. This disclosure is being madepursuant to the Care Everywhere program and may not contain all information available regarding this patient. 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 Gender Identity Not on file Sexual Orientation Not on file Last Filed Vital Signs Vital Sign Reading Time Taken Comments Blood Pressure 138/72 03/05/2019 4:31 PM GEODESY TEACHER Pulse 120 03/05/2019 4:31 PM GEODESY TEACHER Temperature 37.2 C (99 F) 03/05/2019 4:31 PM GEODESY TEACHER Respiratory Rate 16 03/05/2019 4:31 PM GEODESY TEACHER Oxygen Saturation 99% 03/05/2019 4:31 PM GEODESY TEACHER Inhaled Oxygen Concentration - - Weight 145.2 kg (320 lb) 03/05/2019 4:31 PM GEODESY TEACHER Height 182.9 cm (6') 03/05/2019 4:31 PM GEODESY TEACHER Body Mass Index 43.4 03/05/2019 4:31 PM GEODESY TEACHER Plan of Treatment Health Maintenance Due Date [...] patient's age to complete this topic [place] [address] PAYOR GENERIC ANTHEM Care Teams Flat Sorter Processor Relationship Specialty Start Date End Date Sarthak Valentino MD [facility] [place] [address] PCP - General Family Medicine 04/08/17
[2024-08-24 16:23] VITALS: BP 125/79; PULSE 70; RESP 18; TEMP 36.4; O2SAT 98
== END 2024-08-24 16:24 | disposition home or self-care (01) ==
PROVIDERS: Emergency Provider Emergency Medicine
DX: R19.7 Diarrhea, unspecified (principal); R10.13 Epigastric pain; G89.29 Other chronic pain; L30.1 Dyshidrosis [pompholyx]
CPT/HCPCS: 36415; 74177; 80053; 81003; 83690; 83735; 85027; 85652; 96361; 96374; 96375; 99284; J2405; J2470; J7030; Q9967

== ENCOUNTER 2024-09-27 00:57 | Day surgery (SDC) | payer BC, SELFPAY ==
[2024-09-14 14:11] VITALS: BMI 39.4
--- OUTSIDE RECORDS SUMMARY | 2024-09-27 00:59 | XMS_ITS | Clinical Summary ---
Author Organization [facility] [place] [place] [address] [facility] Address [address] [facility] [place] [address] Care Team Providers Care Diabetes Solutions Specialist Name Role Phone Varun Ortiz MD Primary Care Provider [phone] Allergies No known active allergies Medications FLUoxetine [...] Plan of Treatment Not on file Insurance [employer] OOS Care Teams Diabetes Solutions Specialist Relationship Specialty Start Date End Date Varun Ortiz MD [address] [place] [address] PCP - General Family Medicine 06/17/21
--- OUTSIDE RECORDS SUMMARY | 2024-09-27 00:59 | XMS_ITS | Clinical Summary ---
Author Organization [facility] Address [address] [place] [address] Care Team Providers Care Wood Buffer Name Role Phone Sarthak Valentino MD Primary Care Provider [phone] Source Comments [facility],non-owned Affiliates and Associated Physician Practices is amultiple site organization consisting of ambulatory clinics and hospital sitesin [place], [place], [place] and [place]. This disclosure is being madepursuant to the Care Everywhere program and may not contain all information available regarding this patient. 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 Gender Identity Not on file Sexual Orientation Not on file Last Filed Vital Signs Vital Sign Reading Time Taken Comments Blood Pressure 138/72 03/05/2019 4:31 PM DISTRICT MEDICAL EXAMINER Pulse 120 03/05/2019 4:31 PM DISTRICT MEDICAL EXAMINER Temperature 37.2 C (99 F) 03/05/2019 4:31 PM DISTRICT MEDICAL EXAMINER Respiratory Rate 16 03/05/2019 4:31 PM DISTRICT MEDICAL EXAMINER Oxygen Saturation 99% 03/05/2019 4:31 PM DISTRICT MEDICAL EXAMINER Inhaled Oxygen Concentration - - Weight 145.2 kg (320 lb) 03/05/2019 4:31 PM DISTRICT MEDICAL EXAMINER Height 182.9 cm (6') 03/05/2019 4:31 PM DISTRICT MEDICAL EXAMINER Body Mass Index 43.4 03/05/2019 4:31 PM DISTRICT MEDICAL EXAMINER Plan of Treatment Health Maintenance Due Date Last Done Comments HIV SCREENING 2004 HEPATITIS C SCREENING 04/29/2007 DTAP/TDAP/TD VACCINES (1 - Tdap) 2008 HEPATITIS B VACCINE (1 of 3 - 19+ 3-dose series) 2008 HPV VACCINE (1 - 3-dose SCDM series) 2016 COVID-19 VACCINE (1 - 2023-2 5 season) 2023 DEPRESSION SCREENING 03/10/2024 INFLUENZA VACCINE (#1) 2024 ZOSTER VACCINE (1 of 2) 2039 [...] patient's age to complete this topic Insurance [employer] Care Teams Wood Buffer Relationship Specialty Start Date End Date Sarthak Valentino MD [facility] [place] [address] PCP - General Family Medicine 04/08/17
--- OUTSIDE RECORDS SUMMARY | 2024-09-27 00:59 | XMS_ITS | Referral Summary ---
Author Organization [facility] [address] [facility] Address [address] [place] [facility] [place] [address] Care Team Providers Care Ad Operations Specialist Name Role Phone Varun Ortiz MD Primary Care Provider [phone] Allergies No known active allergies Medications FLUoxetine [...] Plan of Treatment Not on file Insurance [employer] OOS Care Teams Ad Operations Specialist Relationship Specialty Start Date End Date Varun Ortiz MD [address] [place] [address] PCP - General Family Medicine 06/17/21
[2024-09-27 12:35] VITALS: BP 133/80; PULSE 69; RESP 20; TEMP 36.7; O2SAT 99; BMI 38.0
[2024-09-27] MEDS: LACTATED RINGERS 1,000 ML 150 ML IV CONT (13:00)
[2024-09-27] MEDS: SIMETHICONE ORAL SUSPENSION 20 MG/0.3 ML 30 ML BOTTLE 1.8 ML PO (13:03)
--- NOTE | 2024-09-27 13:36 | WPDANESEPPF ---
Anes - Initial Pre Proc Eval Procedure: Operation Date: 09/27/24 14:00 Proposed Procedures p EGD & Diagnostic Colonoscopy - Jez Rodriguez MD Date/Time: 09/27/24 13:36 Surgeon: Jez Rodriguez MD Pre Op Diagnosis: Diarrhea, unspecified Patient Data Age: 34 Gender: M Height: 1.91 m Weight: 138 kg Last Vital Signs Temp 36.7 C 09/27/24 12:35 Pulse 69 09/27/24 12:35 Resp 20 09/27/24 12:35 BP 133/80 09/27/24 12:35 Pulse Ox 99 09/27/24 12:35 O2 Del Method Room Air 09/27/24 12:35 Allergies Allergy/AdvReac Type Severity Reaction Status Date / Time shellfish derived Allergy Unknown Swelling Verified 09/27/24 12:49 of Lip/Tongue/Throat Home Medications ?Medication ?Instructions ?Recorded ?Confirmed ?Type dextroamphetamine-amphetamine 10 10 mg PO DAILY 05/14/20 09/27/24 History mg tablet alprazolam 1 mg tablet 1 mg PO BID 04/09/23 09/27/24 History inhalational spacing device #1 ea 04/09/23 09/09/24 Rx (BreatheRite MDI Spacer) lamotrigine 25 mg tablet 25 mg PO DAILY 07/21/24 09/27/24 History quetiapine 25 mg tablet 25 mg PO DAILY 07/21/24 09/09/24 History fluocinonide 0.05 % topical cream 1 applic topical BID #60 grams 08/24/24 09/09/24 Rx ondansetron 4 mg disintegrating 4 mg PO Q4H PRN nausea and 08/24/24 09/09/24 Rx tablet vomiting 20 doses #20 tabs pantoprazole 40 mg tablet,delayed 40 mg PO DAILY #30 tabs 09/09/24 09/27/24 Rx release sucralfate 1 gram tablet (Carafate) 1 g PO TID #90 tabs 09/09/24 09/27/24 Rx Patient hx anesthesia problems: none Family hx anesthesia problems: none Results Review: All pre-operative results and documents have been reviewed as part of the pre-operative evaluation. [facility] Family History Family History Father Family history of diabetes mellitus in first degree relative Social History Social History Smoking status: Current some day smoker Tobacco type: cigars Alcohol intake: never Substance use: current Substance use type: marijuana Living arrangements: with family Spiritual care concerns: No Anes - Eval Final PreProcedure Day of Procedure 09/27/24 13:36 Patient weight: obese Heart: regular rate and rhythm Lungs: decreased breath sounds Airway: Mallampati scale class II Neurological: alert and oriented Last oral intake: >/= 8 hours ASA classification: III Emergent: no Anesthetic plan: proceed Anesthesia type and monitoring: general GIVS and standard monitoring Results Review: All pre-operative results and documents have been reviewed as part of the pre-operative evaluation. Informed Consent: The patient's anesthetic plan and its attendant risks and benefits were discussed with the patient/family/POA. Questions were solicited and answers provided to the satisfaction of the patient/family/POA.
--- NOTE | 2024-09-27 14:09 | P.HP_ITS ---
H&P: HPI History of Present Illness Date/Time: 09/27/24 14:09 Chief Complaint: Intermittent diarrhea-abdominal pain -GERD Narrative: patient seen in our office 2 weeks ago with intermittent complaints of diarrhea , ill-defined epigastric, mid abdominal pain for several months as well as persistent heartburn. He is referred for EGD and colonoscopy. Review of Systems Review of Systems: All systems reviewed & are unremarkable except as noted in HPI and below PMFSH Family History Family History Father Family history of diabetes mellitus in first degree relative Social History Social History Smoking status: Current some day smoker Tobacco type: cigars Alcohol intake: never Substance use: current Substance use type: marijuana Living arrangements: with family Spiritual care concerns: No Meds Home Medications and Allergies Home Medications ?Medication ?Instructions ?Recorded ?Confirmed ?Type dextroamphetamine-amphetamine 10 10 mg PO DAILY 05/14/20 09/27/24 History mg tablet alprazolam 1 mg tablet 1 mg PO BID 04/09/23 09/27/24 History inhalational spacing device #1 ea 04/09/23 09/09/24 Rx (BreatheRite MDI Spacer) lamotrigine 25 mg tablet 25 mg PO DAILY 07/21/24 09/27/24 History quetiapine 25 mg tablet 25 mg PO DAILY 07/21/24 09/09/24 History fluocinonide 0.05 % topical cream 1 applic topical BID #60 grams 08/24/24 09/09/24 Rx ondansetron 4 mg disintegrating 4 mg PO Q4H PRN nausea and 08/24/24 09/09/24 Rx tablet vomiting 20 doses #20 tabs pantoprazole 40 mg tablet,delayed 40 mg PO DAILY #30 tabs 09/09/24 09/27/24 Rx release sucralfate 1 gram tablet (Carafate) 1 g PO TID #90 tabs 09/09/24 09/27/24 Rx Allergies Allergy/AdvReac Type Severity Reaction Status Date / Time shellfish derived Allergy Unknown Swelling Verified 09/27/24 12:49 of Lip/Tongue/Throat Vital Signs Vital Signs - 24 hr 09/27/24 12:35 Temperature 98.0 F Pulse Rate 69 Respiratory Rate 20 Blood Pressure 133/80 Pulse Oximetry 99 Oxygen Delivery Room Air Exam Const: General: cooperative and healthy appearing Resp: Effort & Inspection: normal respiratory effort and able to speak in complete sentences Auscultation: clear to auscultation bilaterally Cardio: Rate: regular rate Rhythm: regular rhythm GI: Inspection: normal to inspection GI Palp: No No hepatosplenomegaly present Auscultation: normal bowel sounds Rectal Exam: deferred Skin: General skin exam: normal color Psych: Appearance: grossly normal Mental Status: mental status grossly normal Assessment and Plan Assessment and plan (1) Epigastric pain: Code(s): R10.13 - Epigastric pain Status: Acute Assessment and Plan: The patient is deemed a good candidate for the procedure. Consent signed. Will proceed. (2) Diarrhea: Qualifiers: Diarrhea type: unspecified type Qualified Code(s): R19.7 - Diarrhea, unspecified Code(s): R19.7 - Diarrhea, unspecified Status: Acute
[2024-09-27] MEDS: SIMETHICONE ORAL SUSPENSION 20 MG/0.3 ML 30 ML BOTTLE 0.6 ML IRRIGATION (14:41)
--- NOTE | 2024-09-27 14:48 | S_PTH ---
PATIENT: Gallo Aguilar LOC: [facility] Rod[facility]guez#:[id number] AGE/SX: 34/M ROOM: RE09/27/[address]: Jez Rodriguez MD : 1990 BED: DIS: 09/27/2024 SPEC #: [id number] RECD: 09/28/24 07:27 STATUS: [place] REPanfilo #: [id number] [place]: 09/27/24 14:[address]: Jez Rodriguez DEPT: [facility] Surgical RECD BY: Modesto Del Cid ENTERED: 09/28/24 07:30 SP TYPE: Surgical OTHR DR: Sarthak ValentinoMD Tissues: A - Gastric Biopsy B - Gastric Biopsy C - Colon Biopsy D - Colon Biopsy E - Colon Polypectomy F - Colon Polypectomy Procedures: Hematoxylin and Eosin Stain Gross and Microscopic Level 4
[2024-09-27 14:49] VITALS: BP 105/71; PULSE 83; RESP 20; O2SAT 96
--- NOTE | 2024-09-27 14:52 | SUR.OPER ---
EGD START 1419, END 1422 COLONOSCOPY START 1429, END 1447
[2024-09-27 14:59] VITALS: BP 127/77; PULSE 85; RESP 20; O2SAT 99
[2024-09-27 15:09] VITALS: BP 135/83; PULSE 82; RESP 20; O2SAT 99
== END 2024-09-27 15:44 | disposition home or self-care (01) ==
PROVIDERS: PCP Family Medicine; Referring Provider Nurse Practitioner Family; Visit Provider Internal Medicine Gastroenterology
PROC: 0DJ08ZZ Inspection of Upper Intestinal Tract, Via Natural or Artificial Opening Endoscopic (ICD-10-PCS; CPT 45378; principal; 2024-09-27 14:00)
DX: K52.832 Lymphocytic colitis (principal); D12.4 Benign neoplasm of descending colon; D12.5 Benign neoplasm of sigmoid colon; K29.30 Chronic superficial gastritis without bleeding; F17.290 Nicotine dependence, other tobacco product, uncomplicated; E66.9 Obesity, unspecified; Z68.38 Body mass index [BMI] 38.0-38.9, adult
CPT/HCPCS: 45380; 45385; 43239; 88305; J2003; J2704; J7120